=== PATIENT | female | born 1935 | race Caucasian/White ===

== ENCOUNTER 2017-02-11 15:03 | Emergency (ER) | payer MEDICARE, MEDICAID ==
[~2017-02-11] VITALS: Ht 160 cm; Wt 51.3 kg
[~2017-02-11 15:03] MED LIST: DIVA250T PO
--- NOTE | 2017-02-11 15:03 | NUR ---
LAURA FROM [facility] SENT BY DR CUI FOR EVALUATION D/T UNWITNESSED GLF. PT FOUND ON FLOOR, USUALLY WALKS WITH MERRY WALKER PER REPORT. NAD NOTED. PT AAO X1, NAD NOTED. VSS. PENDING MD WILLIAM.
--- NOTE | 2017-02-11 18:31 | NUR ---
CALLED [facility] FOR UPDATE ON HEAD CT READ - THEY STATED THAT IT WAS READ AT 181 AND ARE FAXING OVER REULTS - INFORMED
[2017-02-11 18:38] VITALS: BP 125/63
--- NOTE | 2017-02-11 18:40 | NUR ---
RECEIVED [facility] FAX - PROVIDED TO
--- NOTE | 2017-02-11 18:40 | NUR ---
CALLED [facility] FOR TRANSPORT - ETA 30 MIN. - TRIP#[id number]
--- NOTE | 2017-02-11 19:16 | NUR ---
assumed care of pt: sleeping breathing loudly, aroused to voice a/o x 1 @ baseline, NAD noted, waiting on p/u to d/c home
--- NOTE | 2017-02-11 19:27 | NUR ---
reprot to [facility]AEFFER, all questions answered
== END 2017-02-11 19:31 | disposition home or self-care (01) ==
LOC: ER 15:06
DX: R51 Headache (principal); F03.90 Unspecified dementia, unspecified severity, without behavioral disturbance, psychotic disturbance, mood disturbance, and anxiety; J32.0 Chronic maxillary sinusitis; W18.30XA Fall on same level, unspecified, initial encounter; Y93.89 Activity, other specified; Y92.89 Other specified places as the place of occurrence of the external cause; Y99.9 Unspecified external cause status
CPT/HCPCS: 70450; 72170; 99284; A4606; Z7610

== ENCOUNTER 2017-05-03 10:08 | Inpatient (IN) | payer MEDICARE, MEDICAID ==
[~2017-05-03] VITALS: Ht 157.5 cm; Wt 49.9 kg
[2017-05-03] MEDS ORDERED: ACET-868 PO (10:17)
[2017-05-03] MEDS ORDERED: CALC-20 PO (10:17)
[2017-05-03] MEDS ORDERED: BISA10SU8 RC (10:17)
[2017-05-03] MEDS ORDERED: DOCU-141 PO (10:17)
[2017-05-03] MEDS ORDERED: MULT-213 PO (10:17)
[2017-05-03] MEDS ORDERED: MAGN400O6 PO (10:17)
[2017-05-03 10:37] LABS: BASOPHILS # (AUTO) 0.1 /CMM (0.0-0.2); BASOPHILS % (AUTO) 0.6 % (0.0-2.0); EOSINOPHILS # (AUTO) 0.7 /CMM (0.0-0.7); EOSINOPHILS % (AUTO) 5.1 % (0.0-6.0); HEMATOCRIT 41 % (33-45); HEMOGLOBIN 13.6 g/dL (11.5-14.8); LYMPHOCYTES # (AUTO) 1.3 /CMM (0.8-4.8); LYMPHOCYTES % (AUTO) 9.9 % (20.0-44.0); MEAN CORPUSCULAR HEMOGLOBIN 30 PG (26.0-33.0); MEAN CORPUSCULAR HGB CONC 34 g/dl (31.0-36.0); MEAN CORPUSCULAR VOLUME 89 fL (82-100); MONOCYTES # (AUTO) 0.8 /CMM (0.1-1.30); MONOCYTES % (AUTO) 5.8 % (2.0-12.0); NEUTROPHILS # (AUTO) 10.4 /CMM (1.8-8.9); NEUTROPHILS % (AUTO) 78.6 % (43.0-81.0); PLATELET COUNT (AUTO) 239 /CMM (150-450); RDW COEFFICIENT OF VARIATION 13.6 (11.5-15.0); RED BLOOD CELL COUNT(AUTO) 4.54 MIL/uL (4.0-5.2); WHITE BLOOD COUNT (AUTO) 13.3 K/uL (4.3-11.0)
[2017-05-03 11:01] LABS: ALANINE AMINOTRANSFERASE 17 U/L (12-78); ALBUMIN 2.6 g/dL (3.4-5.0); ALKALINE PHOSPHATASE 55 U/L (46-116); ASPARTATE AMINOTRANSFERASE 12 U/L (15-37); BILIRUBIN,DIRECT 0.1 mg/dL (0.0-0.2); BILIRUBIN,TOTAL 0.3 mg/dL (0.2-1.0); CALCIUM, SERUM 8.6 mg/dL (8.5-10.1); CARBON DIOXIDE 29 mmol/L (21-32); CHLORIDE 104 mmol/L (98-107); GLUCOSE 103 mg/dL (74-106); POTASSIUM 4.4 mmol/L (3.5-5.1); SODIUM SERUM 139 mmol/L (136-145); TOTAL PROTEIN, SERUM 6.9 g/dL (6.4-8.2); UREA NITROGEN, BLOOD 19 mg/dL (7-18)
[2017-05-03 11:03] LABS: PROTHROMBIN TIME 10.4 SECS (9.5-12.7); TROPONIN I < 0.017 ng/mL (0.00-0.056)
[2017-05-03 11:38] LABS: APPEARANCE,URINE Clear (CLEAR); BILIRUBIN,URINE SMALL (NEGATIVE); BLOOD, URINE Moderate Ery/uL (NEGATIVE); COLOR,URINE Yellow (YELLOW); KETONES,URINE Trace (NEGATIVE); LEUKOCYTE ESTERASE ,URINE Moderate (NEGATIVE); NITRITE, URINE Negative (NEGATIVE); PH,URINE 6.5 (5.0-8.0); PROTEIN,URINE 30 mg/dl (NEGATIVE); UGLUCOSE Negative (NEGATIVE)
[2017-05-03 11:50] LABS: BACTERIA,URINE Many /HPF (None Seen); SQUAMOUS EPITHELIAL CELL,UR Few /HPF (None Seen); WBC,URINE TOO NUMEROUS TO COUN /HPF (0-3)
[2017-05-03] MEDS ORDERED: CEFTRIAXONE 1GM BAG (ER ONLY) 50 ML IV ONE (12:00)
[2017-05-03] MEDS ORDERED: IV NS 0.9% 1,000 ML BAG IV ONE (12:00)
[2017-05-03] MEDS ORDERED: ONDANSETRON HCL/PF 4 MG/2 ML VIAL IVP PRN (14:00)
[2017-05-03] MEDS ORDERED: Z GUARD REMEDY 2 OZ OINT TP PRN (14:00)
[2017-05-03] MEDS ORDERED: HYDROCODONE/APAP 5/325MG 1 EACH TABLET PO PRN (14:00)
[2017-05-03] MEDS ORDERED: ACETAMINOPHEN 650 MG/SUPP.RECT RC PRN (14:00)
[2017-05-03 16:00] VITALS: BP 121/72
[2017-05-03] MEDS: CALCIUM CARB 600MG /VIT D 1 EACH TABLET PO SCH (17:00)
[2017-05-03] MEDS: IV NS 0.9% 1,000 ML IV PRN (18:35)
[2017-05-03 20:00] VITALS: BP 131/79
[2017-05-03] MEDS: VALPROIC ACID 250 MG/5 ML UDC GT SCH (21:00)
[2017-05-04] MEDS: IV NS 0.9% 1,000 ML IV PRN (06:43)
[2017-05-04 07:25] LABS: BASOPHILS % (AUTO) 0.3 % (0.0-2.0); EOSINOPHILS # (AUTO) 0.8 /CMM (0.0-0.7); EOSINOPHILS % (AUTO) 7.2 % (0.0-6.0); HEMATOCRIT 37 % (33-45); HEMOGLOBIN 12.6 g/dL (11.5-14.8); LYMPHOCYTES % (AUTO) 18.4 % (20.0-44.0); MEAN CORPUSCULAR HEMOGLOBIN 31 PG (26.0-33.0); MEAN CORPUSCULAR HGB CONC 34 g/dl (31.0-36.0); MEAN CORPUSCULAR VOLUME 91 fL (82-100); MONOCYTES # (AUTO) 0.8 /CMM (0.1-1.30); MONOCYTES % (AUTO) 7.6 % (2.0-12.0); NEUTROPHILS # (AUTO) 7.3 /CMM (1.8-8.9); NEUTROPHILS % (AUTO) 66.5 % (43.0-81.0); PLATELET COUNT (AUTO) 211 /CMM (150-450); RED BLOOD CELL COUNT(AUTO) 4.03 MIL/uL (4.0-5.2); WHITE BLOOD COUNT (AUTO) 10.9 K/uL (4.3-11.0)
[2017-05-04 08:00] VITALS: BP 92/52
[2017-05-04 08:09] LABS: CALCIUM, SERUM 8.1 mg/dL (8.5-10.1); CARBON DIOXIDE 28 mmol/L (21-32); CHLORIDE 109 mmol/L (98-107); CREATININE 0.9 mg/dL (0.6-1.3); GLUCOSE 82 mg/dL (74-106); MAGNESIUM 1.8 mg/dL (1.8-2.4); PHOSPHORUS 3.4 mg/dL (2.5-4.9); SODIUM SERUM 143 mmol/L (136-145); UREA NITROGEN, BLOOD 15 mg/dL (7-18)
[2017-05-04] MEDS: CALCIUM CARB 600MG /VIT D 1 EACH TABLET PO SCH (08:48)
[2017-05-04] MEDS: VALPROIC ACID 250 MG/5 ML UDC GT SCH (08:49)
[2017-05-04] MEDS ORDERED: CEFTRIAXONE 1 G in IV D5W 50 ML IV SCH (12:00)
[2017-05-04] MEDS ORDERED: [UNRECOGNIZED DRUG - OTHER] (13:28)
[2017-05-04] MEDS ORDERED: BISA10SU8 RC (13:28)
[2017-05-04] MEDS ORDERED: LORA2ORA PO (13:28)
== END 2017-05-04 15:30 | DRG 871 ==
LOC: ER 10:10 → MED 11:36
PROVIDERS: ADMIT Internal Medicine; ATTEND Internal Medicine
DX: A41.9 Sepsis, unspecified organism (principal); G93.41 Metabolic encephalopathy; E46 Unspecified protein-calorie malnutrition; F03.90 Unspecified dementia, unspecified severity, without behavioral disturbance, psychotic disturbance, mood disturbance, and anxiety; N39.0 Urinary tract infection, site not specified; Z68.1 Body mass index [BMI] 19.9 or less, adult; E03.9 Hypothyroidism, unspecified; R65.20 Severe sepsis without septic shock; Z66 Do not resuscitate; Z51.5 Encounter for palliative care; R13.10 Dysphagia, unspecified; Z79.899 Other long term (current) drug therapy; M19.90 Unspecified osteoarthritis, unspecified site; Z74.01 Bed confinement status
CPT/HCPCS: 36415; 70450-TC; 71045-TC; 80048-TC; 80076-TC; 81000-TC; 83605-TC; 83735-TC; 84100-TC; 84484-TC; 85025-TC; 85730-TC; 87040-TC; 87081-TC; 87086-TC; 87186-TC; A4606; J0696; J7030; J7060; Z7610